=== PATIENT | male | born 1970 ===

== ENCOUNTER 2017-07-01 10:14 | Emergency (ER) | payer OTHER ==
[2017-07-01 10:21] VITALS: BMI 29.2
[2017-07-01 10:23] VITALS: RESP 20
[2017-07-01] MEDS ORDERED: Albuterol 0.083% Inhal Sol (2.5 mg/3 mL) UD IH STA ×2 (10:30→11:56)
[2017-07-01] MEDS ORDERED: Albuterol 0.083% Inhal Sol (2.5 mg/3 mL) UD ONE ×2 (10:37→12:12)
--- NOTE | 2017-07-01 10:45 | RAD ---
HISTORY: cough, sob, fever COMPARISON: No prior. TECHNIQUE: Chest PA and lateral FINDINGS: LUNGS: No active pulmonary disease. PLEURA: No significant pleural effusion identified. No pneumothorax apparent. CARDIOVASCULAR: Normal. OSSEOUS STRUCTURES: No significant abnormalities. VISUALIZED UPPER ABDOMEN: Normal. OTHER FINDINGS: None. IMPRESSION: No active disease.
--- NOTE | 2017-07-01 12:19 | C.PDOC ---
History Of Present Illness 46 year male presents to the ED for evaluation of nonproductive cough, sore throat, and intermittent fever which began 1 week ago. Patient admits to a history of seasonal allergies, but denies history of asthma/COPD. He also denies chest pain, shortness of breath, ear pain, rash, or history of smoking. Time Seen by Provider: 07/01/17 10:25 Chief Complaint (Nursing): Cough, Cold, Congestion History Per: Patient History/Exam Limitations: no limitations Onset/Duration Of Symptoms: Intermittent Episodes (1 week) Current Symptoms Are (Timing): Still Present Sick Contacts (Context): None Associated Symptoms: Fever, Sore Throat, Cough. denies: Sputum Ear Symptoms: Bilateral: None Additional History Per: Patient Past Medical History Reviewed: Historical Data, Nursing Documentation, Vital Signs Vital Signs: Last Vital Signs Temp 98.0 F 07/01/17 12:51 Pulse 104 H 07/01/17 12:51 Resp 20 07/01/17 12:51 BP 115/77 07/01/17 12:51 Pulse Ox 94 L 07/01/17 12:51 - Medical History PMH: No Chronic Diseases Surgical History: No Surg Hx Family History: States: No Known Family Hx - Social History Hx Tobacco Use: No Hx Alcohol Use: No Hx Substance Use: No - Immunization History Hx Tetanus Toxoid Vaccination: No Hx Influenza Vaccination: No Hx Pneumococcal Vaccination: No Review Of Systems Except As Marked, All Systems Reviewed And Found Negative. Constitutional: Positive for: Fever ENT: Positive for: Nose Congestion, Throat Pain. Negative for: Ear Pain Cardiovascular: Negative for: Chest Pain, Palpitations Respiratory: Positive for: Cough. Negative for: Shortness of Breath, Sputum Skin: Positive for: Rash Physical Exam - Physical Exam Appears: Non-toxic, No Acute Distress, Other (mildly uncomfortable ) Skin: Normal Color, Warm, Dry, No Rash Eye(s): bilateral: Normal Inspection Ear(s): Bilateral: Normal Nose: Normal, No Discharge Oral Mucosa: Moist Throat: Normal, No Erythema, No Exudate, No Drooling Neck: Supple Cardiovascular: Rhythm Regular, No Murmur, Other (tachycardic) Respiratory: No Accessory Muscle Use, No Rales, No Rhonchi, Wheezing (mild, expiratory wheezing bilaterally ), Other (speaking in full sentences, (+) occasional cough) Extremity: Normal ROM, No Pedal Edema, No Calf Tenderness Pulses: Left Dorsalis Pedis: Normal, Right Dorsalis Pedis: Normal Neurological/Psych: Oriented x3 Gait: Steady ED Course And Treatment O2 Sat by Pulse Oximetry: 97 (on RA) Pulse Ox Interpretation: Normal - Other Rad CXR X-Ray: Interpreted by Me, Viewed By Me, Read By Radiologist Interpretation: HISTORY: cough, sob, fever. COMPARISON: No prior. TECHNIQUE : Chest PA and lateral. FINDINGS: LUNGS: No active pulmonary disease. PLEURA: No significant pleural effusion identified. No pneumothorax apparent. CARDIOVASCULAR: Normal. OSSEOUS STRUCTURES: No significant abnormalities. VISUALIZED UPPER ABDOMEN: Normal. OTHER FINDINGS: None. IMPRESSION: No active disease. Progress Note: CXR ordered and reviewed. Patient given PO Prednisone, albuterol neb and Tessalon. Reevaluation Time: 12:40 Reassessment Condition: Improved (On reassessment, patient is resting comfortably and states he feels better. On exam, he has good air entry B/L without wheezing or accessory muscle use. POx is 97-98% on RA. CXR (-) for infiltrates/effusions. Patient given Rxs for Tessalon, Prednisone, and albuterol inhaler. He was instructed to follow up with PMD/clinic in 1-2 days, and he understands he should return to ED if symptoms worsen.) Disposition Counseled Patient/Family Regarding: Studies Performed, Diagnosis, Need For Followup, Rx Given - Disposition Referrals: [facility] at [facility] [Outside] Disposition: HOME/ ROUTINE Disposition Time: 12:40 Condition: STABLE Additional Instructions: FOLLOW UP WITH YOUR DOCTOR OR MEDICAL CLINIC IN 1-2 DAYS USE MEDICATIONS DIRECTED RETURN TO EMERGENCY ROOM IF SYMPTOMS WORSEN Prescriptions: Albuterol HFA [Ventolin HFA 90 mcg/actuation (8 g)] 0.09 mg IH Q4 PRN #1 puff PRN Reason: Wheezing Benzonatate [Tessalon Perles] 100 mg PO BID PRN #15 sgl PRN Reason: Cough predniSONE [predniSONE Tab] 40 mg PO DAILY #8 tab Forms: [facility] (Tongan), Work Excuse Print Language: IVORIAN - POA Present On Arrival: None - Clinical Impression Clinical Impression: Bronchitis, Bronchospasm - Scribe Statement The provider has reviewed the documentation as recorded by the Scribe (Flor Wen) Provider Attestation: All medical record entries made by the Sascha were at my direction and personally dictated by me. I have reviewed the chart and agree that the record accurately reflects my personal performance of the history, physical exam, medical decision making, and the department course for this patient. I have also personally directed, reviewed, and agree with the discharge instructions and disposition.
[2017-07-01 12:53] VITALS: BP 115/77; PULSE 104; TEMP 98
[2017-07-03 15:55] VITALS: O2SAT 97
== END 2017-07-01 12:52 | disposition home or self-care (01) ==
LOC: C.ER 10:14
DX: J40 Bronchitis, not specified as acute or chronic (principal); J98.01 Acute bronchospasm

== ENCOUNTER 2017-11-10 09:48 | Emergency (ER) | payer OTHER ==
[2017-11-10 09:48] VITALS: BMI 29.2
--- NOTE | 2017-11-10 10:16 | C.PDOC ---
History Of Present Illness 46 year old male, with no significant PMHx, presents to the ED for evaluation of chest pain which had been intermittent but became constant over the past 3 days. Patient describes that he feels a band across his anterior chest wall. He notes that his job requires use of both of his arms. Patient states the pain radiates to his back, head and neck at night. Pain is worse with movement and deep inspiration. He also reports a minor cough and slightly runny nose. Patient currently denies fever, chills, shortness of breath, nausea, vomiting, dizziness, headache, trauma or heavy lifting. Time Seen by Provider: 11/10/17 10:02 Chief Complaint (Nursing): Chest Pain History Per: Patient History/Exam Limitations: no limitations Onset/Duration Of Symptoms: Intermittent Episodes (1 week), Other (constant for 3 days ) Current Symptoms Are (Timing): Still Present Quality: "Pain" Associated Symptoms: denies: Nausea Exacerbating Factors: Movement, Deep Breathing Additional History Per: Patient Past Medical History Reviewed: Historical Data, Nursing Documentation, Vital Signs Vital Signs: Last Vital Signs Temp 98.4 F 11/10/17 13:18 Pulse 74 11/10/17 13:18 Resp 18 11/10/17 13:18 BP 118/68 11/10/17 13:18 Pulse Ox 99 11/10/17 13:50 - Medical History PMH: No Chronic Diseases Surgical History: No Surg Hx Family History: States: Unknown Family Hx - Social History Hx Tobacco Use: No Hx Alcohol Use: Yes Hx Substance Use: No - Immunization History Hx Tetanus Toxoid Vaccination: No Hx Influenza Vaccination: No Hx Pneumococcal Vaccination: No Review Of Systems Constitutional: Negative for: Fever, Chills Cardiovascular: Positive for: Chest Pain Respiratory: Negative for: Shortness of Breath Gastrointestinal: Negative for: Nausea Neurological: Negative for: Headache, Dizziness Physical Exam - Physical Exam Appears: Non-toxic, No Acute Distress Skin: Normal Color, Warm, Dry Head: Atraumatic, Normacephalic Eye(s): bilateral: Normal Inspection Oral Mucosa: Moist Neck: Supple Chest: Symmetrical, No Deformity, No Tenderness Cardiovascular: Rhythm Regular, No Murmur Respiratory: Normal Breath Sounds, No Rales, No Rhonchi, No Wheezing Extremity: Normal ROM, Capillary Refill (less than 2 seconds ) Neurological/Psych: Oriented x3, Normal Speech, Normal Cognition Gait: Steady ED Course And Treatment - Laboratory Results Result Diagrams: 11/10/17 10:35 11/10/17 10:35 ECG: Interpreted By Me, Viewed By Me ECG Rhythm: Sinus Rhythm Interpretation Of ECG: Normal Sinus Rhythm at rate 90bpm. No ST elevations or depressions. Rate From EC O2 Sat by Pulse Oximetry: 99 (on RA) Pulse Ox Interpretation: Normal - Other Rad CXR X-Ray: Interpreted by Me, Viewed By Me, Read By Radiologist Interpretation: Chest x-ray two views. History: Chest pain. Comparison: 2016. Findings: No focal infiltrate or effusion. Heart size within normal limits. Degenerative changes in the spine. Upper lobe granulomatous changes. Impression: No focal infiltrate or effusion. Heart size within normal limits. Degenerative changes in the spine. Upper lobe granulomatous changes. Medical Decision Making Medical Decision Making: Progress: Bloodwork, CXR, EKG ordered and reviewed. Motrin PO and Tylenol PO administered. Normal CE, pain improved with medication. will d/c to follow up in clinic. Disposition - Disposition Referrals: [facility] at [facility] [Outside] Disposition: HOME/ ROUTINE Disposition Time: 14:05 Condition: STABLE Prescriptions: Ibuprofen [Motrin] 600 mg PO TID #15 tab Instructions: Costochondritis Forms: General Discharge Instructions, [facility] (Scottish), Work Excuse - Clinical Impression Clinical Impression: Anterior chest wall pain - Scribe Statement The provider has reviewed the documentation as recorded by the Scribe (Flor Wen) Provider Attestation: All medical record entries made by the Scribe were at my direction and personally dictated by me. I have reviewed the chart and agree that the record accurately reflects my personal performance of the history, physical exam, medical decision making, and the department course for this patient. I have also personally directed, reviewed, and agree with the discharge instructions and disposition.
--- NOTE | 2017-11-10 10:35 | RAD ---
Chest x-ray two views History: Chest pain. Comparison: 07/01/2017 Findings: No focal infiltrate or effusion. Heart size within normal limits. Degenerative changes in the spine. Upper lobe granulomatous changes. Impression: No focal infiltrate or effusion. Heart size within normal limits. Degenerative changes in the spine. Upper lobe granulomatous changes.
[2017-11-10 10:45] LABS: BASO # 0.1 K/uL (0.0-0.2); BASO % 0.8 % (0.0-2.0); EOS # 0.3 K/uL (0.0-0.7); HEMOGLOBIN 15.4 g/dL (12.0-18.0); LYMPH # 2.1 K/uL (1.0-4.3); LYMPH % 27.1 % (20.0-40.0); MEAN CELL VOLUME 81.4 fL (80.0-94.0); MEAN CORPUSCULAR HEMOGLOBIN 27.3 pg (27.0-31.0); MEAN CORPUSCULAR HGB CONC 33.5 g/dL (33.0-37.0); MEAN PLATELET VOLUME 9.9 fL (7.2-11.7); MONO # 0.4 K/uL (0.0-0.8); MONO % 5.3 % (0.0-10.0); NEUT # 4.9 K/uL (1.8-7.0); NEUT % 62.8 % (50.0-75.0); RBC 5.65 Mil/uL (4.40-5.90); RED CELL DISTRIBUTION WIDTH 13.6 % (11.5-14.5); WHITE BLOOD COUNT 7.9 K/uL (4.8-10.8)
[2017-11-10 11:48] LABS: B-TYPE NATRIURETIC PEPTIDE < 11.1 pg/mL (0-450); BLOOD UREA NITROGEN 13 mg/dL (9-20); CALCIUM 9.3 mg/dl (8.6-10.4); GFR AFRICAN-AMERICAN > 60; GFR NON-AFRICAN AMERICAN > 60
[2017-11-10 12:41] VITALS: RESP 18
[2017-11-10 13:19] VITALS: BP 118/68; PULSE 74; TEMP 98.4
[2017-11-10 13:50] VITALS: O2SAT 99
--- NOTE | 2017-11-11 13:38 | CARD ---
APPROVED REPORT EKG Measurement Heart [id number] <Conclusion> Normal sinus rhythm Normal ECG
== END 2017-11-10 14:14 | disposition home or self-care (01) ==
LOC: C.ER 09:48
DX: R07.89 Other chest pain (principal)

== ENCOUNTER 2018-06-05 14:36 | Emergency (ER) | payer OTHER ==
[2018-06-05 14:36] VITALS: BMI 29.2
[2018-06-05 15:01] VITALS: RESP 18; TEMP 97.8
[2018-06-05] MEDS ORDERED: Piperacillin/Tazobact 3.375 GM in Sodium Chloride 100 ML IVPB STA (15:32)
[2018-06-05] MEDS ORDERED: Piperacillin/Tazobact 3.375 gm 100 ML IVPB ONE (15:49)
[2018-06-05 16:03] LABS: URINE BILIRUBIN NEGATIVE (NEGATIVE); URINE BLOOD 1+ (NEGATIVE); URINE CLARITY Clear (Clear); URINE COLOR Straw (YELLOW); URINE GLUCOSE (UA) NORMAL (Normal); URINE LEUKOCYTE ESTERASE NEG Leu/uL (Negative); URINE PROTEIN NEGATIVE (NEGATIVE); URINE UROBILINOGEN NORMAL mg/dL (0.2-1.0)
[2018-06-05] MEDS ORDERED: Vancomycin 1 GM 1 GM/250 ML BAG IVPB ONE (16:11)
--- NOTE | 2018-06-05 16:44 | C.PDOC ---
History Of Present Illness 47 y/o male presents to the ER complaining of irritation to private area above penis.Patient denies having testicular pain, penile discharge, dysuria, fever, and chills. Time Seen by Provider: 06/05/18 15:16 Chief Complaint (Nursing): Abnormal Skin Integrity History Per: Patient History/Exam Limitations: no limitations Onset/Duration Of Symptoms: Days Current Symptoms Are (Timing): Still Present Severity: Moderate Past Medical History Reviewed: Historical Data, Nursing Documentation, Vital Signs Vital Signs: Last Vital Signs Temp 97.8 F 06/05/18 14:58 Pulse 84 06/05/18 14:58 Resp 18 06/05/18 14:58 BP 126/82 06/05/18 14:58 Pulse Ox 98 06/05/18 14:58 - Medical History PMH: No Chronic Diseases Surgical History: No Surg Hx Family History: States: No Known Family Hx - Social History Hx Tobacco Use: No Hx Alcohol Use: No Hx Substance Use: No - Immunization History Hx Tetanus Toxoid Vaccination: No Hx Influenza Vaccination: No Hx Pneumococcal Vaccination: No Review Of Systems Except As Marked, All Systems Reviewed And Found Negative. Constitutional: Negative for: Fever, Chills Genitourinary: Negative for: Dysuria, Penile Discharge Skin: Positive for: Rash (area above penis) Physical Exam - Physical Exam Appears: Non-toxic, No Acute Distress Skin: Normal Color, Warm, Dry, Rash (maculopapular erythematous rash in the vulvar region above penis, no testicular involvement) Head: Atraumatic, Normacephalic Eye(s): bilateral: Normal Inspection Nose: Normal Oral Mucosa: Moist Neck: Supple Chest: Symmetrical Cardiovascular: Rhythm Regular Respiratory: Normal Breath Sounds, No Rales, No Rhonchi, No Wheezing Neurological/Psych: Oriented x3, Normal Speech ED Course And Treatment O2 Sat by Pulse Oximetry: 98 (RA) Pulse Ox Interpretation: Normal Medical Decision Making Medical Decision Making: Assessment: Folliculitis Plan: --Labs --UA --Toradol IV --Zosyn IV --Vancomycin IV Updates: Patient has been discharged and instructed to follow up with PMD in 2 days. Disposition - Disposition Disposition: HOME/ ROUTINE Disposition Time: 16:41 Condition: STABLE Additional Instructions: follow up with your doctor within 2 days call to make an appointment take medication as prescribed return to ER if symptoms worsens or progress Prescriptions: Sulfamethoxazole/Trimethoprim [Bactrim DS 800 mg-160 mg] 1 tab PO BID #20 tab Instructions: Skin Rash (DC), Folliculitis (DC) Forms: [facility] (Latvian), General Discharge Instructions - Clinical Impression Clinical Impression: Skin irritation, Skin lesion, Folliculitis - Michaelibe Statement The provider has reviewed the documentation as recorded by the Sascha Mccullough Provider Attestation: All medical record entries made by the Sascha were at my direction and personally dictated by me. I have reviewed the chart and agree that the record accurately reflects my personal performance of the history, physical exam, medical decision making, and the department course for this patient. I have also personally directed, reviewed, and agree with the discharge instructions and disposition.
[2018-06-05 18:01] VITALS: BP 115/79; PULSE 76; O2SAT 99
== END 2018-06-05 18:01 | disposition home or self-care (01) ==
LOC: C.ER 14:36
DX: L73.9 Follicular disorder, unspecified (principal); L98.8 Other specified disorders of the skin and subcutaneous tissue
CPT/HCPCS: 81001; 82948; 87086; 87491; 87591; 96365; 96366; 96367; 96375; 99285; J1885; J2543; J7050